=== PATIENT | female | born 1980 | race Caucasian/White ===

== ENCOUNTER 2019-11-28 00:07 | Emergency (ER) | payer OTHER ==
[2019-11-28] MEDS ORDERED: predniSONE 20 MG TAB ONE (00:51)
--- NOTE | 2019-11-28 07:57 | RAD ---
EXAM: Two views chest PROVIDED CLINICAL HISTORY: Cough COMPARISON: None FINDINGS: Cardiac and mediastinal silhouette appears within normal limits. Lungs appear free of significant opa city. No pleural fluid or pneumothorax apparent. IMPRESSION: No evidence for an acute cardiopulmonary process.
== END 2019-11-28 02:18 | disposition home or self-care (01) ==
LOC: ERS 00:07
DX: J45.901 Unspecified asthma with (acute) exacerbation (principal); J10.1 Influenza due to other identified influenza virus with other respiratory manifestations; Z79.51 Long term (current) use of inhaled steroids
CPT/HCPCS: 71046; 87804; 94640; J7512; J7620